=== PATIENT | female | born 1990 | race Caucasian/White ===

== ENCOUNTER 2020-07-25 15:07 | Inpatient (IN) ==
[2020-07-25] MEDS ORDERED: LACTATED RINGERS 1,000 ML IV ONE (15:52)
[2020-07-25 17:41] LABS: Alanine Aminotransferase 13 U/L (13-56); Albumin 2.4 G/DL (3.4-5.0); Alkaline Phosphatase 129 U/L (45-117); Aspartate Amino Transferase 18 U/L (0-37); Bilirubin,Total < 0.39 MG/DL (0.2-1.0); Blood Urea Nitrogen 4 MG/DL (7-18); Calcium 8.4 MG/DL (8.5-10.1); Carbon Dioxide 29 MMOL/L (21-32); Estimated Glom Filtration Rate 129 ML/MIN; Glucose 107 MG/DL (74-106); Osmolality,Calculated 269.8 MOS/KG (273-304); Sodium 137 MMOL/L (136-145); Total Protein 8.2 G/DL (6.4-8.3)
[2020-07-25] MEDS ORDERED: PIPERACILLIN/TAZOBACTAM 3,375 MG in SODIUM CHLORIDE 0.9% 100 ML IV STA ×2 (18:06→18:28)
[2020-07-25 18:16] LABS: Basophils # 0.1 10*3/uL (0.0-0.2); Basophils % 0.5 % (0.0-0.8); Eosinophils # 0.3 10*3/uL (0.0-0.87); Eosinophils % 1.6 % (0.00-10.9); Hematocrit 31.2 VOL% (35.7-47.0); Hemoglobin 9.1 GM/DL (12.0-16.0); Immature Granulocytes % 0.5 %; Immature Granulocytes Absolute 0.09 #; Lymphocytes % 23.2 % (21.3-54.2); Mean Corpuscular HGB Conc 29.2 GM/DL (32-36); Mean Corpuscular Volume 86.7 FL (87-102); Mean Platelet Volume 9.3 FL (9.6-12.0); Monocytes % 4.9 % (1.7-12.7); Neutrophils % 69.3 % (38.7-73.9); Platelet Count 626 T/CUMM (130-400); Red Cell Distribution Width 15.7 % (9.3-17.3); White Blood Count 17.3 T/CUMM (4-12)
[2020-07-25 18:25] LABS: Bacteria,Urine Many /HPF (Few); Bilirubin,Urine Negative (Negative); Blood, Urine Negative (Negative); Glucose,Urine (UA) Negative (Negative); Ketones,Urine Negative (Negative); Nitrite,Urine Positive (Negative); Protein,Urine Negative; Squamous Epithelial Cell,Urine Occasional /HPF (0-10); Urine Appearance CLOUDY (Clear); Urine Color Yellow (Yellow); Urine Specific Gravity 1.011 (1.001-1.035); Urine Urobilinogen < 2.0 EU/DL (0.2-1.0); WBC,Urine 665 /HPF (0-6)
[2020-07-25 18:50] LABS: Lymphocytes 29 % (20-55); Segmented Neutrophils 66 % (50-85); Total Cells Counted 100
[2020-07-25 18:52] LABS: Hypochromasia 2+
[2020-07-25 18:53] LABS: Platelet Estimate Increased; Polychromasia 1+; Reactive Lymphocytes 1+
[2020-07-25] MEDS ORDERED: GLUCAGON 1 MG VIAL IM PRN (19:14)
[2020-07-25] MEDS ORDERED: DEXTROSE 50% 25 GM/50 ML VIAL IV PRN (19:14)
[2020-07-25] MEDS: CEFEPIME 1,000 MG in SODIUM CHLORIDE 0.9% 100 ML IV SCH (20:30)
[2020-07-25] MEDS: SODIUM CHLORIDE 0.9% 1,000 ML IV SCH (20:30)
[2020-07-25] MEDS: ENOXAPARIN 40 MG/0.4 ML SYRINGE SUBCUT SCH (21:29)
[2020-07-25] MEDS: VANCOMYCIN INJ 1,250 MG in SODIUM CHLORIDE 0.9% 250 ML IV SCH (21:38)
[2020-07-25] MEDS: GABAPENTIN 600 MG TABLET PO SCH (22:46)
[2020-07-26] MEDS: CEFEPIME 1,000 MG in SODIUM CHLORIDE 0.9% 100 ML IV SCH ×4 (02:50→20:05)
[2020-07-26] MEDS: ONDANSETRON 4 MG/2 ML VIAL IV PRN ×2 (03:16→11:58)
[2020-07-26] MEDS: MORPHINE 4 MG/1 ML VIAL IV PRN ×3 (03:16→20:07)
[2020-07-26] MEDS: SODIUM CHLORIDE 0.9% 1,000 ML IV SCH ×2 (05:32→11:53)
[2020-07-26 07:02] LABS: Basophils # 0.1 10*3/uL (0.0-0.2); Basophils % 0.7 % (0.0-0.8); Eosinophils # 0.2 10*3/uL (0.0-0.87); Eosinophils % 1.7 % (0.00-10.9); Hematocrit 25.9 VOL% (35.7-47.0); Hemoglobin 7.6 GM/DL (12.0-16.0); Immature Granulocytes % 0.5 %; Immature Granulocytes Absolute 0.06 #; Lymphocytes # 3.5 10*3/uL (1.4-4.0); Lymphocytes % 30.7 % (21.3-54.2); Mean Corpuscular HGB Conc 29.3 GM/DL (32-36); Mean Corpuscular Volume 85.2 FL (87-102); Mean Platelet Volume 9.4 FL (9.6-12.0); Monocytes % 6.5 % (1.7-12.7); Neutrophils % 59.9 % (38.7-73.9); Platelet Count 513 T/CUMM (130-400); Red Blood Count 3.04 MC/CUMM (3.8-5.5); Red Cell Distribution Width 15.8 % (9.3-17.3); White Blood Count 11.2 T/CUMM (4-12)
[2020-07-26] MEDS ORDERED: INFLUENZA VIRUS VACCINE 0.5 ML SYRINGE IM ONE (07:26)
[2020-07-26] MEDS ORDERED: CLINDAMYCIN INJ 900 MG in PREMIX 1 EACH IV ONE ×2 (08:00→16:00)
[2020-07-26 08:39] LABS: Calcium 8.3 MG/DL (8.5-10.1); Osmolality,Calculated 271.7 MOS/KG (273-304); Potassium 3.6 MMOL/L (3.5-5.1)
[2020-07-26] MEDS: PANTOPRAZOLE 40 MG TABLET PO SCH (09:22)
[2020-07-26] MEDS: GABAPENTIN 600 MG TABLET PO SCH ×3 (09:22→20:04)
[2020-07-26] MEDS: VANCOMYCIN INJ 1,250 MG in SODIUM CHLORIDE 0.9% 250 ML IV SCH ×2 (11:45→20:12)
[2020-07-26] MEDS ORDERED: ROCURONIUM 50 MG/5 ML VIAL IV ONE (15:29)
[2020-07-26] MEDS ORDERED: propofoL 200 MG/20 ML VIAL IV ONE (15:29)
[2020-07-26] MEDS ORDERED: SUCCINYLCHOLINE 200 MG/10 ML VIAL ONE (15:29)
[2020-07-26] MEDS ORDERED: ONDANSETRON 4 MG/2 ML VIAL ONE (15:29)
[2020-07-26] MEDS ORDERED: LIDOCAINE 2% 5 ML VIAL ONE (15:29)
[2020-07-26] MEDS ORDERED: fentaNYL 100 MCG/2 ML VIAL ONE (15:30)
[2020-07-26] MEDS ORDERED: METOCLOPRAMIDE 10 MG/2 ML VIAL ONE (15:45)
[2020-07-26] MEDS ORDERED: MIDAZOLAM 2 MG/2 ML VIAL ONE (15:46)
[2020-07-26] MEDS ORDERED: SUGAMMADEX 200 MG/2 ML VIAL IV ONE (16:37)
[2020-07-26] MEDS ORDERED: SEVOFLURANE 1 UNIT/15 MINUTE INH ONE (16:42)
[2020-07-26] MEDS ORDERED: ONDANSETRON 4 MG/2 ML VIAL IV PRN (17:09)
[2020-07-26] MEDS ORDERED: HYDROmorphone 2 MG/1 ML VIAL IV PRN (17:09)
[2020-07-26] MEDS: ENOXAPARIN 40 MG/0.4 ML SYRINGE SUBCUT SCH (20:05)
[2020-07-27] MEDS: CEFEPIME 1,000 MG in SODIUM CHLORIDE 0.9% 100 ML IV SCH ×4 (03:07→22:08)
[2020-07-27] MEDS: SODIUM CHLORIDE 0.9% 1,000 ML IV SCH (03:07)
[2020-07-27] MEDS: MORPHINE 4 MG/1 ML VIAL IV PRN ×4 (05:46→22:06)
[2020-07-27 06:09] LABS: Basophils # 0.1 10*3/uL (0.0-0.2); Basophils % 0.5 % (0.0-0.8); Eosinophils # 0.2 10*3/uL (0.0-0.87); Eosinophils % 1.8 % (0.00-10.9); Hematocrit 24.3 VOL% (35.7-47.0); Hemoglobin 7.2 GM/DL (12.0-16.0); Immature Granulocytes % 0.6 %; Immature Granulocytes Absolute 0.06 #; Lymphocytes # 3.1 10*3/uL (1.4-4.0); Lymphocytes % 28.8 % (21.3-54.2); Mean Corpuscular HGB Conc 29.6 GM/DL (32-36); Mean Corpuscular Volume 85.3 FL (87-102); Mean Platelet Volume 9.5 FL (9.6-12.0); Monocytes % 7.7 % (1.7-12.7); Neutrophils % 60.6 % (38.7-73.9); Platelet Count 464 T/CUMM (130-400); Red Blood Count 2.85 MC/CUMM (3.8-5.5); Red Cell Distribution Width 16.1 % (9.3-17.3); White Blood Count 10.7 T/CUMM (4-12)
[2020-07-27] MEDS: PANTOPRAZOLE 40 MG TABLET PO SCH (08:48)
[2020-07-27] MEDS: GABAPENTIN 600 MG TABLET PO SCH ×3 (08:52→22:08)
[2020-07-27] MEDS ORDERED: SODIUM CHLORIDE 0.9% 1,000 ML IV PRN ×2 (09:49→18:57)
[2020-07-27] MEDS: VANCOMYCIN INJ 1,250 MG in SODIUM CHLORIDE 0.9% 250 ML IV SCH ×2 (10:17→22:58)
[2020-07-27] MEDS: ENOXAPARIN 40 MG/0.4 ML SYRINGE SUBCUT SCH (22:08)
[2020-07-28] MEDS: SODIUM CHLORIDE 0.9% 1,000 ML IV SCH ×2 (00:02→06:41)
[2020-07-28] MEDS: CEFEPIME 1,000 MG in SODIUM CHLORIDE 0.9% 100 ML IV SCH ×3 (03:45→22:05)
[2020-07-28] MEDS: MORPHINE 4 MG/1 ML VIAL IV PRN ×2 (06:01→22:43)
[2020-07-28 07:42] LABS: Basophils # 0.1 10*3/uL (0.0-0.2); Basophils % 0.5 % (0.0-0.8); Eosinophils # 0.3 10*3/uL (0.0-0.87); Eosinophils % 2.5 % (0.00-10.9); Hematocrit 33.3 VOL% (35.7-47.0); Hematocrit 33.6 VOL% (35.7-47.0); Immature Granulocytes % 0.6 %; Immature Granulocytes Absolute 0.07 #; Lymphocytes # 2.9 10*3/uL (1.4-4.0); Lymphocytes % 24.4 % (21.3-54.2); Mean Platelet Volume 9.2 FL (9.6-12.0); Monocytes % 6.3 % (1.7-12.7); Neutrophils % 65.7 % (38.7-73.9); Platelet Count 431 T/CUMM (130-400); Red Cell Distribution Width 15.1 % (9.3-17.3); White Blood Count 11.8 T/CUMM (4-12)
[2020-07-28 07:43] LABS: Hemoglobin 10.1 GM/DL (12.0-16.0)
[2020-07-28 07:44] LABS: Red Blood Count 3.74 MC/CUMM (3.8-5.5)
[2020-07-28 08:00] LABS: Osmolality,Calculated 273.7 MOS/KG (273-304); Potassium 3.2 MMOL/L (3.5-5.1)
[2020-07-28] MEDS: GABAPENTIN 600 MG TABLET PO SCH ×3 (10:16→22:40)
[2020-07-28] MEDS: PANTOPRAZOLE 40 MG TABLET PO SCH (10:17)
[2020-07-28] MEDS ORDERED: MORPHINE 4 MG/1 ML VIAL IV ONE (11:26)
[2020-07-28] MEDS: SODIUM HYPOCHLORITE 0.25% IRRIG 473 ML BOTTLE TOP SCH (14:30)
[2020-07-28] MEDS: VANCOMYCIN INJ 1,250 MG in SODIUM CHLORIDE 0.9% 250 ML IV SCH (14:32)
[2020-07-28] MEDS: ENOXAPARIN 40 MG/0.4 ML SYRINGE SUBCUT SCH (22:05)
[2020-07-29] MEDS: VANCOMYCIN INJ 1,250 MG in SODIUM CHLORIDE 0.9% 250 ML IV SCH ×2 (01:34→13:44)
[2020-07-29] MEDS: CEFEPIME 1,000 MG in SODIUM CHLORIDE 0.9% 100 ML IV SCH ×4 (03:08→21:31)
[2020-07-29] MEDS: MORPHINE 4 MG/1 ML VIAL IV PRN ×3 (05:06→18:32)
[2020-07-29] MEDS: PANTOPRAZOLE 40 MG TABLET PO SCH (09:42)
[2020-07-29] MEDS: GABAPENTIN 600 MG TABLET PO SCH ×3 (09:42→21:33)
[2020-07-29] MEDS: SODIUM CHLORIDE 0.9% 1,000 ML IV SCH (13:45)
[2020-07-29] MEDS: SODIUM HYPOCHLORITE 0.25% IRRIG 473 ML BOTTLE TOP SCH (18:45)
[2020-07-29] MEDS: ENOXAPARIN 40 MG/0.4 ML SYRINGE SUBCUT SCH (21:34)
[2020-07-30] MEDS: SODIUM CHLORIDE 0.9% 1,000 ML IV SCH ×2 (01:24→12:49)
[2020-07-30] MEDS: VANCOMYCIN INJ 1,250 MG in SODIUM CHLORIDE 0.9% 250 ML IV SCH ×2 (01:25→12:49)
[2020-07-30] MEDS: MORPHINE 4 MG/1 ML VIAL IV PRN ×3 (01:36→14:33)
[2020-07-30] MEDS: CEFEPIME 1,000 MG in SODIUM CHLORIDE 0.9% 100 ML IV SCH ×3 (02:59→14:30)
[2020-07-30] MEDS: PANTOPRAZOLE 40 MG TABLET PO SCH (08:12)
[2020-07-30] MEDS: GABAPENTIN 600 MG TABLET PO SCH ×2 (08:12→14:33)
[2020-07-30] MEDS: SODIUM HYPOCHLORITE 0.25% IRRIG 473 ML BOTTLE TOP SCH (08:14)
[2020-07-30 09:15] LABS: Basophils % 0.5 % (0.0-0.8); Eosinophils # 0.3 10*3/uL (0.0-0.87); Eosinophils % 3.4 % (0.00-10.9); Hematocrit 33.5 VOL% (35.7-47.0); Hemoglobin 10.1 GM/DL (12.0-16.0); Immature Granulocytes % 0.6 %; Immature Granulocytes Absolute 0.05 #; Lymphocytes # 1.9 10*3/uL (1.4-4.0); Lymphocytes % 22.8 % (21.3-54.2); Mean Corpuscular HGB Conc 30.1 GM/DL (32-36); Mean Corpuscular Volume 88.6 FL (87-102); Monocytes % 5.8 % (1.7-12.7); Neutrophils % 66.9 % (38.7-73.9); Platelet Count 409 T/CUMM (130-400); Red Blood Count 3.78 MC/CUMM (3.8-5.5); Red Cell Distribution Width 15.8 % (9.3-17.3); White Blood Count 8.5 T/CUMM (4-12)
[2020-07-30 09:37] LABS: Calcium 8.1 MG/DL (8.5-10.1); Osmolality,Calculated 276.4 MOS/KG (273-304); Potassium 3.4 MMOL/L (3.5-5.1)
[2020-07-30] MEDS: ONDANSETRON 4 MG/2 ML VIAL IV PRN ×2 (10:07→14:34)
[2020-07-30 15:58] VITALS: BP 107/63
== END 2020-07-30 17:40 | DRG 981 ==
LOC: N.ED 15:07 → N.EDINP 19:14 → N.3E 21:50
PROVIDERS: ADMIT Emergency Medicine; ATTEND Emergency Medicine

== ENCOUNTER 2022-03-19 14:07 | Inpatient (IN) ==
[2022-03-19] MEDS ORDERED: VANCOMYCIN INJ 1,250 MG in SODIUM CHLORIDE 0.9% 250 ML IV STA ×2 (15:05→15:07)
[2022-03-19] MEDS ORDERED: VANCOMYCIN INJ 1,000 MG in SODIUM CHLORIDE 0.9% 250 ML IV STA (15:07)
[2022-03-19 16:04] LABS: Basophils # 0.1 10*3/uL (0.0-0.2); Basophils % 0.4 % (0.0-0.8); Eosinophils % 0.2 % (0.00-10.9); Hematocrit 36.8 VOL% (35.7-47.0); Hemoglobin 11.6 GM/DL (12.0-16.0); Immature Granulocytes % 0.2 %; Immature Granulocytes Absolute 0.03 #; Lymphocytes # 1.9 10*3/uL (1.4-4.0); Lymphocytes % 15.1 % (21.3-54.2); Mean Corpuscular HGB Conc 31.5 GM/DL (32-36); Mean Corpuscular Volume 83.3 FL (87-102); Mean Platelet Volume 9.8 FL (9.6-12.0); Monocytes # 1.4 10*3/uL (0.11-0.8); Monocytes % 10.6 % (1.7-12.7); Neutrophils % 73.5 % (38.7-73.9); Platelet Count 345 T/CUMM (130-400); Red Blood Count 4.42 MC/CUMM (3.8-5.5); Red Cell Distribution Width 15.9 % (9.3-17.3); White Blood Count 12.9 T/CUMM (4-12)
[2022-03-19 16:34] LABS: Alanine Aminotransferase 9 U/L (13-56); Albumin 2.5 G/DL (3.4-5.0); Alkaline Phosphatase 94 U/L (45-117); Aspartate Amino Transferase 14 U/L (0-37); Bilirubin,Total < 0.39 MG/DL (0.20-1.00); Blood Urea Nitrogen 5 MG/DL (7-18); Calcium 8.7 MG/DL (8.5-10.1); Carbon Dioxide 32 MMOL/L (21-32); Chloride 94 MMOL/L (98-107); Glucose 118 MG/DL (74-106); Osmolality,Calculated 261.5 MOS/KG (273-304); Potassium 2.9 MMOL/L (3.5-5.1); Sodium 132 MMOL/L (136-145); Total Protein 8.9 G/DL (6.4-8.2)
[2022-03-19] MEDS ORDERED: POTASSIUM CHLORIDE 20 MEQ TABLET PO STA (16:37)
[2022-03-19] MEDS ORDERED: SODIUM CHLORIDE 0.9% 500 ML IV STA (16:39)
[2022-03-19] MEDS ORDERED: ACETAMINOPHEN 500 MG TABLET ONE (17:16)
[2022-03-19] MEDS ORDERED: NICOTINE 21 MG/24 HR PATCH TRANSDERM PRN (17:53)
[2022-03-19] MEDS ORDERED: BISACODYL 5 MG TABLET PO PRN (17:53)
[2022-03-19] MEDS ORDERED: DEXTROSE 10% 250 ML BAG IV PRN (17:53)
[2022-03-19] MEDS ORDERED: ACETAMINOPHEN 325 MG TABLET PO PRN (17:53)
[2022-03-19] MEDS ORDERED: hydrALAZINE 20 MG/1 ML VIAL IV PRN (17:53)
[2022-03-19] MEDS ORDERED: GLUCAGON 1 MG VIAL IM PRN (17:53)
[2022-03-19] MEDS ORDERED: SODIUM CHLORIDE 0.9% 2,000 ML IV ONE (18:07)
[2022-03-19] MEDS ORDERED: POTASSIUM CHLORIDE 20 MEQ TABLET PO ONE (18:11)
[2022-03-19] MEDS: cefTRIAXone 1,000 MG in SODIUM CHLORIDE 0.9% 100 ML IV SCH (21:35)
[2022-03-19 21:57] LABS: Glucose,Urine (UA) Negative (Negative); Ketones,Urine Negative (Negative); Nitrite,Urine Negative (Negative); Protein,Urine Negative (Negative); Urine Appearance Clear (Clear); Urine Color Yellow (Yellow); Urine pH 5.5 (4.5-8.0)
[2022-03-19 21:58] LABS: Bilirubin,Urine Negative (Negative); Blood, Urine Negative (Negative); Urine Urobilinogen 0.2 eU/dL (<2.0)
[2022-03-19 22:01] LABS: Bacteria,Urine Many /HPF (Few); Mucus,Urine Occasional /LPF (Occasional); Squamous Epithelial Cell,Urine Occasional /HPF (0-10)
[2022-03-19] MEDS: DOCUSATE SODIUM 100 MG CAPSULE PO SCH (22:10)
[2022-03-19] MEDS: CYCLOBENZAPRINE 10 MG TABLET PO SCH (22:10)
[2022-03-19] MEDS: GABAPENTIN 400 MG CAPSULE PO SCH (22:10)
[2022-03-19] MEDS: MORPHINE 2 MG/1 ML SYRINGE IV PRN (22:33)
[2022-03-19 22:58] LABS: Barbiturates Screen,Urine Negative (Negative); Benzodiazepines Screen,Urine Positive (Negative); Cannabinoid Screen,Urine Positive (Negative); Opiate Screen,Urine Positive (Negative); Phencyclidine Screen,Urine Negative (Negative)
[2022-03-19] MEDS: SODIUM CHLORIDE 0.9% 1,000 ML IV SCH (23:17)
[2022-03-20] MEDS: VANCOMYCIN INJ 1,250 MG in SODIUM CHLORIDE 0.9% 250 ML IV SCH ×2 (06:15→21:01)
[2022-03-20 06:18] LABS: Calcium 8.6 MG/DL (8.5-10.1); Osmolality,Calculated 277.3 MOS/KG (273-304); Potassium 3.6 MMOL/L (3.5-5.1)
[2022-03-20 06:39] LABS: Basophils % 0.3 % (0.0-0.8); Eosinophils % 0.5 % (0.00-10.9); Hematocrit 37.5 VOL% (35.7-47.0); Immature Granulocytes % 0.3 %; Immature Granulocytes Absolute 0.03 #; Lymphocytes # 1.7 10*3/uL (1.4-4.0); Lymphocytes % 18.8 % (21.3-54.2); Mean Corpuscular HGB Conc 29.3 GM/DL (32-36); Mean Corpuscular Volume 88.2 FL (87-102); Mean Platelet Volume 10.8 FL (9.6-12.0); Monocytes # 0.9 10*3/uL (0.11-0.8); Monocytes % 10.5 % (1.7-12.7); Neutrophils % 69.6 % (38.7-73.9); Platelet Count 241 T/CUMM (130-400); Red Blood Count 4.25 MC/CUMM (3.8-5.5); Red Cell Distribution Width 15.9 % (9.3-17.3); White Blood Count 8.8 T/CUMM (4-12)
[2022-03-20] MEDS: oxyCODONE/ACETAMINOPHEN 5-325 MG TABLET PO PRN ×3 (08:23→21:08)
[2022-03-20] MEDS: GABAPENTIN 400 MG CAPSULE PO SCH ×3 (08:23→21:02)
[2022-03-20] MEDS: CYCLOBENZAPRINE 10 MG TABLET PO SCH ×3 (08:23→21:03)
[2022-03-20] MEDS: DOCUSATE SODIUM 100 MG CAPSULE PO SCH ×3 (08:24→21:03)
[2022-03-20] MEDS: PANTOPRAZOLE 40 MG TABLET PO SCH ×2 (08:25→09:46)
[2022-03-20] MEDS: NICOTINE 21 MG/24 HR PATCH TRANSDERM SCH (09:45)
[2022-03-20] MEDS: SODIUM CHLORIDE 0.9% 1,000 ML IV SCH ×3 (12:50→22:45)
[2022-03-20] MEDS: cefTRIAXone 1,000 MG in SODIUM CHLORIDE 0.9% 100 ML IV SCH (18:39)
[2022-03-21 05:53] LABS: Basophils % 0.4 % (0.0-0.8); Eosinophils # 0.2 10*3/uL (0.0-0.87); Hematocrit 29.9 VOL% (35.7-47.0); Hemoglobin 8.8 GM/DL (12.0-16.0); Immature Granulocytes % 0.4 %; Immature Granulocytes Absolute 0.03 #; Lymphocytes # 2.6 10*3/uL (1.4-4.0); Lymphocytes % 32.5 % (21.3-54.2); Mean Corpuscular HGB Conc 29.4 GM/DL (32-36); Mean Corpuscular Volume 88.2 FL (87-102); Mean Platelet Volume 10.3 FL (9.6-12.0); Monocytes # 0.7 10*3/uL (0.11-0.8); Monocytes % 8.1 % (1.7-12.7); Neutrophils % 56.6 % (38.7-73.9); Platelet Count 306 T/CUMM (130-400); Red Blood Count 3.39 MC/CUMM (3.8-5.5)
[2022-03-21] MEDS: MORPHINE 2 MG/1 ML SYRINGE IV PRN ×3 (05:55→20:21)
[2022-03-21 06:05] LABS: Osmolality,Calculated 279.1 MOS/KG (273-304)
[2022-03-21 06:31] LABS: Platelet Estimate Normal
[2022-03-21 06:32] LABS: Anisocytosis Slight
[2022-03-21] MEDS: SODIUM CHLORIDE 0.9% 1,000 ML IV SCH ×3 (07:23→16:04)
[2022-03-21] MEDS ORDERED: MAGNESIUM SULF RIDER 2 GM/50 ML PREMIX IV ONE (07:58)
[2022-03-21] MEDS: GABAPENTIN 400 MG CAPSULE PO SCH ×3 (08:01→20:21)
[2022-03-21] MEDS: ONDANSETRON 4 MG/2 ML VIAL IV PRN ×2 (08:01→16:03)
[2022-03-21] MEDS: oxyCODONE/ACETAMINOPHEN 5-325 MG TABLET PO PRN ×3 (08:03→18:18)
[2022-03-21] MEDS: CYCLOBENZAPRINE 10 MG TABLET PO SCH ×3 (08:03→20:25)
[2022-03-21] MEDS: DOCUSATE SODIUM 100 MG CAPSULE PO SCH ×2 (08:11→20:21)
[2022-03-21] MEDS: PANTOPRAZOLE 40 MG TABLET PO SCH (08:11)
[2022-03-21] MEDS ORDERED: ROCURONIUM 50 MG/5 ML VIAL IV ONE (09:21)
[2022-03-21] MEDS ORDERED: ONDANSETRON 4 MG/2 ML VIAL ONE (09:21)
[2022-03-21] MEDS ORDERED: SEVOFLURANE 1 UNIT/15 MINUTE INH ONE (09:21)
[2022-03-21] MEDS ORDERED: fentaNYL 100 MCG/2 ML VIAL ONE (09:21)
[2022-03-21] MEDS ORDERED: MIDAZOLAM 2 MG/2 ML VIAL ONE (09:21)
[2022-03-21] MEDS ORDERED: propofoL 200 MG/20 ML VIAL IV ONE (09:21)
[2022-03-21] MEDS ORDERED: LIDOCAINE 2% 5 ML VIAL ONE (09:21)
[2022-03-21] MEDS ORDERED: NEOSTIGMINE 10 MG/10 ML VIAL ONE (09:57)
[2022-03-21] MEDS ORDERED: GLYCOPYRROLATE 0.4 MG/2 ML VIAL ONE (09:57)
[2022-03-21] MEDS ORDERED: SUGAMMADEX 200 MG/2 ML VIAL IV ONE (10:02)
[2022-03-21] MEDS ORDERED: HYDROmorphone 1 MG/1 ML SYRINGE ONE (10:29)
[2022-03-21] MEDS ORDERED: HYDROmorphone 1 MG/1 ML SYRINGE IV PRN (10:30)
[2022-03-21] MEDS ORDERED: ONDANSETRON 4 MG/2 ML VIAL IV PRN (10:30)
[2022-03-21] MEDS: POTASSIUM CHLORIDE 20 MEQ TABLET PO SCH ×2 (11:49→13:49)
[2022-03-21] MEDS: NICOTINE 21 MG/24 HR PATCH TRANSDERM SCH (12:02)
[2022-03-21] MEDS: VANCOMYCIN INJ 1,250 MG in SODIUM CHLORIDE 0.9% 250 ML IV SCH (14:19)
[2022-03-21] MEDS: cefTRIAXone 1,000 MG in SODIUM CHLORIDE 0.9% 100 ML IV SCH (19:02)
[2022-03-22] MEDS: oxyCODONE/ACETAMINOPHEN 5-325 MG TABLET PO PRN ×2 (00:41→10:13)
[2022-03-22] MEDS: MORPHINE 2 MG/1 ML SYRINGE IV PRN ×2 (01:01→06:27)
[2022-03-22] MEDS: SODIUM CHLORIDE 0.9% 1,000 ML IV SCH ×2 (01:14→06:28)
[2022-03-22 06:41] LABS: Basophils % 0.5 % (0.0-0.8); Eosinophils # 0.3 10*3/uL (0.0-0.87); Eosinophils % 3.1 % (0.00-10.9); Hematocrit 30.9 VOL% (35.7-47.0); Hemoglobin 9.1 GM/DL (12.0-16.0); Immature Granulocytes % 0.4 %; Immature Granulocytes Absolute 0.03 #; Lymphocytes # 2.9 10*3/uL (1.4-4.0); Lymphocytes % 35.8 % (21.3-54.2); Mean Corpuscular HGB Conc 29.4 GM/DL (32-36); Mean Platelet Volume 10.4 FL (9.6-12.0); Monocytes # 0.6 10*3/uL (0.11-0.8); Monocytes % 7.2 % (1.7-12.7); Platelet Count 315 T/CUMM (130-400); Red Blood Count 3.51 MC/CUMM (3.8-5.5); White Blood Count 8.1 T/CUMM (4-12)
[2022-03-22 07:00] LABS: Calcium 7.5 MG/DL (8.5-10.1); Osmolality,Calculated 279.1 MOS/KG (273-304); Potassium 4.1 MMOL/L (3.5-5.1)
[2022-03-22 07:11] LABS: Platelet Estimate Normal
[2022-03-22 07:12] LABS: Anisocytosis 1+
[2022-03-22 07:13] LABS: Macrocytosis Slight
[2022-03-22] MEDS: GABAPENTIN 400 MG CAPSULE PO SCH (08:09)
[2022-03-22] MEDS: PANTOPRAZOLE 40 MG TABLET PO SCH (08:09)
[2022-03-22] MEDS: DOCUSATE SODIUM 100 MG CAPSULE PO SCH (08:09)
[2022-03-22] MEDS: NICOTINE 21 MG/24 HR PATCH TRANSDERM SCH (08:10)
[2022-03-22] MEDS: CYCLOBENZAPRINE 10 MG TABLET PO SCH (08:22)
[2022-03-22] MEDS ORDERED: SODIUM HYPOCHLORITE 0.25% IRRIG 473 ML BOTTLE TOP SCH (10:00)
[2022-03-22 11:23] VITALS: BP 95/62
[2022-03-22] MEDS ORDERED: CEFUROXIME 500 MG TABLET PO SCH (17:00)
== END 2022-03-22 13:00 | disposition home health service (06) | DRG 264 ==
LOC: N.ED 14:07 → N.EDINP 17:53 → N.3E 22:01
PROVIDERS: ADMIT Internal Medicine; ATTEND Internal Medicine